=== PATIENT | female | born 1960 | race Caucasian/White ===

== ENCOUNTER 2025-05-16 09:00 | Emergency (ER) | payer OTHER, SELFPAY ==
[2025-05-16] VITALS (7 sets, daily range): BP systolic 141–175; BP diastolic 70–89; PULSE 65–78; RESP 13–18; TEMP 36.4–36.8; O2SAT 99–100; BMI 30.2
--- NOTE | 2025-05-16 09:25 | RAD_ITS ---
PROCEDURE: CHEST PA AND LATERAL 05/16/2025 REASON FOR EXAM: CHEST PAIN TECHNIQUE: CHEST PA AND LATERAL COMPARISON: None FINDINGS: Hardware: EKG electrodes are seen. Heart: The heart size is normal. Mediastinum: The mediastinal contour is unremarkable. Lungs: The lungs are clear. Bones: Degenerative changes are identified within the thoracic spine. RAD/Chest PA and Lateral IMPRESSION: NO ACUTE FINDINGS. Reading Location: [facility]
--- NOTE | 2025-05-16 09:43 | EX.ED.DYSGE1 ---
HPI History of Present Illness Chief Complaint: Dizziness Narrative Narrative: Patient is a 64-year-old female with no known significant past medical history who presented to the emergency department with chief complaint of feeling off. States that she [place] and notes that she sat up and she felt lightheaded and off not her normal self. States that she sat there for a few minutes and ultimately was able to stand up and walk to get a shower. She states that she bent over to pick something up and noted that the symptoms occurred again. In the triage note it states that she was dizzy when I inquired about if she was dizzy or not she states that things were not spinning and she was not spinning felt more lightheaded. She states that she feels like she has been drinking plenty of fluids but is unsure. States that she overall felt well prior to going to bed last night which she states that she went to bed late. She notes that she has not been sleeping well at [place]. She notes that she had a slight headache yesterday with some slight pressure on the right side of her head today. [facility] Medical History (Updated 05/16/25 @ 13:[address] Oleksandr Bernard, DO) Cholecystitis Home Medications ?Medication ?Instructions ?Recorded ?Last Taken ?Type NK 05/16/25 Unknown History Allergy/AdvReac Type Severity Reaction Status Date / Time nitrofurantoin (From Allergy Severe Anaphylaxis Verified 05/16/25 09:08 Macrobid) codeine Allergy Mild NEEDS Verified 05/16/25 09:08 FOLLOW-UP diazepam (From Valium) Allergy Mild PT UNSURE Verified 05/16/25 09:08 OF REACTION fluorescein Allergy Mild NEEDS Verified 05/16/25 09:08 FOLLOW-UP fosfomycin Allergy Mild PT UNSURE Verified 05/16/25 09:08 OF REACTION levofloxacin (From Levaquin) Allergy Mild PT UNSURE Verified 05/16/25 09:08 OF REACTION meperidine (From Demerol) Allergy Mild PT UNSURE Verified 05/16/25 09:08 OF REACTION phenazopyridine Allergy Mild PT UNSURE Verified 05/16/25 09:08 OF REACTION tromethamine Allergy Mild NEEDS Verified 05/16/25 09:08 FOLLOW-UP amoxicillin (From Trimox) Allergy Unknown NEEDS Verified 05/16/25 09:08 FOLLOW-UP cefixime (From Suprax) Allergy Unknown PT UNSURE Verified 05/16/25 09:08 OF REACTION Cephalosporins Allergy Unknown PT UNSURE Verified 05/16/25 09:08 OF REACTION Surgical History (Updated 05/16/25 @ 09:53 by Francesca Morgan) S/P colon polypectomy Hx of cholecystectomy Social History Smoking Status: Never smoker ROS ROS ED ROS Narrative Constitutional: Complains of lightheadedness and a headache as noted above denies fevers or chills Eyes: Denies change in vision double vision blurry vision Cardiovascular: Denies chest pain Respiratory: Denies shortness of breath Abdomen: Denies abdominal pain nausea vomit diarrhea : Denies urinary symptoms Neurological: Denies numbness, weeks, tingling Musculoskeletal: Denies back pain Skin: Denies rashes or lesions EXAM Physical Exam Narrative Exam Narrative: General: Patient lying in bed rest comfortably did not appear to be in acute distress Head: Atraumatic, normocephalic Eyes: PERRL bilaterally, EOMI bilateral, no conjunctival injection noted Neck: Soft and supple, trachea midline Cardiovascular: Regular rate rhythm no murmurs gallops or rubs noted Respiratory: Clear to auscultation bilaterally Abdomen: Soft, nondistended, nontender to palpation Extremities: Radial pulses +2/4 in the bilateral extremities, +5/5 strength noted in the bilateral upper and lower extremities Neurological: Patient following commands knew that she was at [facility] the year is 2024. NIH of 0 GCS 15. Patient completed finger-nose testing bilaterally finding difficulty Skin: Warm, dry, intact no rashes lesions noted Const Vital Signs: 05/16/25 09:08 05/16/25 09:49 05/16/25 09:49 Temperature 98.1 F 98.3 F Temperature Source Temporal Oral Pulse Rate 65 78 Respiratory Rate 18 16 Blood Pressure 165/75 H 174/89 H Blood Pressure Mean 105 117 Pulse Ox 99 100 Oxygen Delivery Method Room Air Room Air Room Air 05/16/25 10:23 05/16/25 11:05 05/16/25 12:00 Temperature Temperature Source Pulse Rate 73 74 70 Respiratory Rate 16 16 16 Blood Pressure 175/75 H 143/82 H 146/70 H Blood Pressure Mean 108 102 95 Pulse Ox 99 100 100 Oxygen Delivery Method Room Air Room Air 05/16/25 13:00 Temperature Temperature Source Pulse Rate 77 Respiratory Rate 13 Blood Pressure 141/74 H Blood Pressure Mean 96 Pulse Ox 100 Oxygen Delivery Method MDM MDM MDM Narrative Medical decision making narrative: Patient is a 64-year-old female who presents to the emergency department with a chief complaint of lightheadedness not feeling well overall. On the differential diagnosis includes but not limited to ACS, intracranial hemorrhage, orthostatic hypotension, electrolyte abnormality. Once workup is obtained and reviewed she will be reevaluated. Patient given IV fluids for hydration. Patient's CBC reviewed showed no evidence leukocytosis white blood count normal 5.9, hemoglobin 14.1, platelet count of 253. Patient sodium was 139, potassium normal 3.7, creatinine was 0.79. Patient troponin was less than 6 with a delta troponin of less than 6. Patient's EKG reviewed and showed sinus rhythm with occasional PVCs noted with a rate of 70 bpm. Patient urinalysis reviewed showed no evidence of infection. Patient's CT head and brain without contrast showed no acute findings. Patient chest x-ray reviewed by myself by radiology showed no acute cardiopulmonary processes. Patient ambulated here in the emergency department was asymptomatic felt well no tachycardia no hypoxia. Discussed results with the patient she would like to go home at this point time. She was advised to return with worsening symptoms or any concerns. She is advised follow-up with her doctor in outpatient setting as well. All question concerns answered she was discharged home in stable condition. Lab Data Labs: Laboratory Results - last 24 hr 05/16/25 05/16/25 05/16/25 09:40 09:47 12:08 WBC 5.9 RBC 4.69 Hgb 14.1 Hct 41.8 MCV 89.1 MCH 30.1 MCHC 33.7 RDW Std Deviation 40.2 RDW Coeff of Chloe 12.4 Plt Count 253 MPV 9.8 Immature Gran % (Auto) 0.200 Neut % (Auto) 64.2 Lymph % (Auto) 24.6 Cottle % (Auto) 8.6 Eos % (Auto) 1.7 Baso % (Auto) 0.7 Absolute Neuts (auto) 3.8 Absolute Lymphs (auto) 1.46 Nucleated RBC % 0 Sodium 139 Potassium 3.7 Chloride 104 Carbon Dioxide 22.9 Anion Gap 12 BUN 10 Creatinine 0.79 Estim Creat Clear Calc 69.10 Est GFR (MDRD) Non-Af 83 BUN/Creatinine Ratio 12.4 Glucose 107 H Calcium 9.7 Troponin T High Sens < 6 Troponin T Hi Sens 2 Hr < 6 Urine Color Straw Urine Clarity Clear Urine pH 7.0 Ur Specific [place] 1.005 Urine Protein Negative Urine Glucose (UA) Normal Urine Ketones Negative Urine Occult Blood Negative Urine Nitrite Negative Urine Bilirubin Negative Urine Urobilinogen Normal Ur Leukocyte Esterase Negative Urine RBC 0 SEEN Urine WBC 0-5 SEEN Ur Squamous Epith Cells 0 SEEN Urine Bacteria 0 SEEN Urine Mucus 0 SEEN Radiography Diagnostic Testing: Clinical Impression(s) from Imaging Studies Chest X-Ray 05/16/25 09:25 IMPRESSION: NO ACUTE FINDINGS. Reading Location: [facility] Brain CT 05/16/25 10:06 IMPRESSION: NO ACUTE FINDINGS Reading Location: [facility] Discharge Plan Triage Chief Complaint: Dizziness ED Provider: Oleksandr Bernard Dx/Rx/DC Orders Clinical Impression: Light-headed, Dehydration, Orthostatic lightheadedness Prescriptions: No Action NK Primary Care Provider: KENZIE SWEENEY Referrals: KENZIE SWEENEY DO [Primary Care Provider] - Activity Restrictions/Additional Instructions: Your blood work did not show any acute findings here today. Your CT of your head and your chest x-ray were normal. Return with worsening symptoms or any concerns. Ensure you are hydrating with plenty of water, Gatorade/Powerade, Pedialyte etc. Print Language: Honduran Disposition Disposition: Home, Self Care
[2025-05-16] MEDS: 0.9% Normal Saline (1000mL) 1,000 ML 999 ML IV (09:54)
[2025-05-16 09:55] LABS: Bacteria 0 SEEN /hpf (None Seen); Mucous, Urine 0 SEEN /hpf (<or=2+); Red Blood Cells-Urine 0 SEEN /hpf (0-5); Squamous Epithelial Cells - UA 0 SEEN /hpf (5-10)
[2025-05-16 10:02] LABS: Absolute Lymphocyte Count 1.46 X10^3/uL (0.83-4.51); Absolute Neutrophil Count 3.8 X10^3/uL (2.0-7.7); Basophil# 0.04 X10^3/uL; Basophil% 0.7 % (0-1); Eosinophils% 1.7 % (0-5); Hematocrit 41.8 % (37-47); Hemoglobin 14.1 g/dL (12.0-15.0); Lymphocyte # 1.46 X10^3/ul (0.83-4.51); Lymphocyte % 24.6 % (19-41); Mean Corp Hgb Conc 33.7 g/dL (32-36); Mean Corpuscular Hgb 30.1 pg (27.0-32.0); Mean Corpuscular Volume 89.1 fL (81-99); Mean Platelet Vol. 9.8 fl (6.2-12.0); Monocyte# 0.51 X10^3/uL; Monocyte% 8.6 % (0-10); NRBC Flagged by Analyzer 0 % (0-5); Neutrophil # 3.82 X10^3/uL (2.7-7.7); Neutrophil % 64.2 % (47-70); Platelet Count 253 K/mm3 (150-450); RBC Distribution Width CV 12.4 % (11.6-14.6); RBC Distribution Width SD 40.2 fl (35.1-43.9); Red Blood Count 4.69 M/mm3 (4.2-5.4); White Blood Count 5.9 K/mm3 (4.4-11.0)
--- NOTE | 2025-05-16 10:06 | CT_ITS ---
PROCEDURE: BRAIN/HEAD WITHOUT CONTRAST 05/16/2025 REASON FOR EXAM: HEADACHE, FEELS OFF TECHNIQUE: BRAIN/HEAD WITHOUT CONTRAST Coronal and Sagittal reconstruction series were provided. One or more dose reduction techniques were used (e.g., Automated exposure control, adjustment of the mA and/or kV according to patient size, use of iterative reconstruction technique. RADIATION DOSE SUMMARY: CTDlvol: 47.06 mGy DLP: 890.33 mGycm COMPARISON: None FINDINGS: Brain: Within normal limits for age CSF Spaces: Mild generalized cerebral atrophy Sinuses/Mastoids: Clear at visualized levels Bones: Hyperostosis frontalis interna. CT/Brain/Head without Contrast IMPRESSION: NO ACUTE FINDINGS Reading Location: [id number]
[2025-05-16 10:08] LABS: Color, Urine Straw (Yellow); Glucose, Dipstick Normal (Normal); Ketone-Dipstick Negative (Negative); Leukocyte Esterase-Dipstick Negative /ul (Negative); Nitrite-Dipstick Negative (Negative); Occult Blood-Urine Negative /ul (Negative); Protein-Dipstick Negative (Negative); Specific Gravity, Urine 1.005 (1.002-1.030); Urine Bilirubin Dipstick Negative (Negative); Urine Clarity Clear (Clear); Urine Urobilinogen Normal (Normal)
[2025-05-16 10:33] LABS: White Blood Cells 0-5 SEEN /hpf (0-5)
[2025-05-16 10:50] LABS: Anion Gap 12 (5-15); BUN 10 mg/dL (4-19); BUN/Creat Ratio 12.4 RATIO (10-20); Calcium,Total 9.7 mg/dL (7.6-11.0); Carbon Dioxide 22.9 mmol/L (21.0-32.0); Chloride 104 mmol/L (98-108); Creatinine, Serum 0.79 mg/dL (0.70-1.20); EST Glomerular Filtration Rate 83 (>60); Glucose 107 mg/dL (70-99); Potassium 3.7 mmol/L (3.3-5.1); Sodium Level 139 mmol/L (133-145); Troponin T High Sensitivity < 6 ng/L (<=14)
[2025-05-16 12:45] LABS: Troponin T High Sens 2 HR < 6 ng/L (<=14)
== END 2025-05-16 13:34 | disposition home or self-care (01) ==
PROVIDERS: Emergency Provider Emergency Medicine; PCP Family Medicine; Visit Provider Emergency Medicine
DX: R42 Dizziness and giddiness (principal); E86.0 Dehydration; R29.700 NIHSS score 0; I49.3 Ventricular premature depolarization; R51.9 Headache, unspecified
CPT/HCPCS: 70450; 71046; 80048; 81001; 84484; 85025; 93005; 96360; 99284; A4216